=== PATIENT | male | born 1965 ===

== ENCOUNTER → 2018-11-02 21:11 | Outpatient (REF) | payer OTHER, SELFPAY ==
[2018-11-02 21:59] LABS: Add Manual Diff / Slide Review NO; Basophils Absolute Auto 0 /uL (0-100); Basophils Percent Auto 1.1 % (0-2); Eosinophils Absolute Auto 100 /uL (0-450); Eosinophils Percent Auto 2.4 % (2-4); Hematocrit 43.6 % (41-53); Hemoglobin 14.6 g/dL (13.5-17.5); Lymphocytes Absolute Auto 800 /uL (1100-4500); Lymphocytes Percent Auto 22.7 % (25-40); Mean Corpuscular HGB Conc 33.5 % (30-36); Mean Corpuscular Hemoglobin 34.1 PG (26-34); Mean Corpuscular Volume 101.8 fL (80-100); Monocytes Absolute Auto 400 /uL (0-900); Monocytes Percent Auto 11.7 % (3-14); Neutrophils Absolute Auto 2300 /uL (1500-7000); Neutrophils Percent Auto 62.1 % (50-75); Platelet Count 238 X10^3/uL (150-400); Red Blood Cell Count 4.29 X10^6/uL (4.5-5.9); White Blood Cell Count 3.7 X10^3/uL (4.5-11.0)
[2018-11-02 22:01] LABS: Alanine Aminotransferase 42 IU/L (21-72); Albumin 4.3 g/dL (3.5-5.0); Albumin Globulin Ratio 1.5 (1.0-2.8); Alkaline Phosphatase 76 U/L (38-126); Aspartate Aminotransferase 41 IU/L (17-59); BUN Creatinine Ratio 24.4 (6-22); Bilirubin Total 1.2 mg/dL (0.2-1.3); Blood Urea Nitrogen 22 mg/dL (9-20); Calcium 9.4 mg/dL (8.4-10.2); Carbon Dioxide 26 mmol/L (22-32); Chloride 100 mmol/L (98-107); Estimated Glomerular Filt Rate > 60.0 mL/min (>60); Globulin 2.8 g/dL (1.7-4.1); Glucose 92 mg/dL (70-100); HEMOLYSIS < 15 (0-50); Potassium 4.3 mmol/L (3.4-5.1); Sodium 137 mmol/L (137-145); Total Protein 7.1 g/dL (6.3-8.2)
[2018-11-02 22:36] LABS: Free T4, Direct Thyroxine 1.22 ng/dL (0.78-2.19)
[2018-11-02 22:50] LABS: Thyroid Stimulating Hormone 2.64 uIU/mL (0.47-4.68)
[2018-11-05 15:23] LABS: Anti Thyroglobulin Antibody < 1 IU/mL (< 2); Thyroid Peroxidase Antibodies 4 IU/mL (< 9)
== END ==
LOC: LAB 21:11
PROVIDERS: Visit Provider Family Medicine
DX: G47.00 Insomnia, unspecified (principal); G47.30 Sleep apnea, unspecified; M54.31 Sciatica, right side; E03.9 Hypothyroidism, unspecified
CPT/HCPCS: 36415; 80053; 84439; 84443; 84482; 85025; 86376; 86800